=== PATIENT | female | born 1950 | race Caucasian/White ===

== ENCOUNTER 2022-09-17 12:20 | Emergency (ER) | payer OTHER ==
--- OUTSIDE RECORDS SUMMARY | 2022-09-17 12:33 | XMS REPORT | Continuity of Care Document ---
:1950 Author Organization [facility] t Address [address] [facility] [address] [place] [address] Care Team Providers Name Role Phone JEEVAN CARRASCO Primary Care Physician Unavailable RADIOLOGY Attending Clinician Unavailable FOG_A_Provider Attending Clinician Unavailable Radiology Attending Clinician Unavailable Doctor Unassigned, [place] Attending Clinician Unavailable Gin Lopez RN Attending Clinician Unavailable SIENA NAVARRO Attending Clinician Unavailable FOG_A_Provider Admitting Clinician Unavailable JEEVAN CARRASCO Admitting Clinician Unavailable Payers Payer Name Policy Type Policy Number Effective Date Expiration Date S ource HUMANA (PPO) [id number] [employer] CHOICE [id number] 2020 00:00:00 Problems This patient has no known problems. Allergies, Adverse Reactions, Alerts Allergy Allergy Status Severity Reaction(s) Onset Inactive Treating Comm ents Source Name Type Date Date Clinician NO KNOWN Drug Active Univers ALLERGIE Class ity of S [facility] Social History Social Habit Start Date Stop Date Quantity Comments Source Exposure to Not sure [facility] SARS-CoV-2 (event) Medica l Branch Sex Assigned At [birth year] [facility] 00:00:00 00:00:00 Medical [place] Smoking Status Start Date Stop Date Source Unknown if ever smoked [facility] Medications This patient has no known medications. Procedures Procedure Date / Time Performed Performing Clinician [facility] e ASSIGNMENT OF BENEFITS 2021-07-18 19:19:13 Doctor Unassigned, No [facility] Name Medical Branch ASSIGNMENT OF BENEFITS 2020-09-24 17:38:33 Doctor Unassigned, No [facility] Encounters Start End Encounter Admission Attending Care Care Encounter Source Date/Time Date/Time Type Type Clinicians Facility Department ID 2022-07-04 Outpatient [facility] [id number] Common 07:57:00 [facility] 2022-07-03 Outpatient [facility] [id number] Common 08:18:01 [id number] [facility] 2021-03-14 Outpatient [facility] [id number] Common 14:44:02 [facility] 2021-03-06 Outpatient [facility] [id number] Common 14:39:51 [facility] 2022-09-07 2022-09-07 Outpatient FOG_A_Provi AOSM AOSM [id number] Bre 00:00:00 00:00:00 john [id number] [facility] 2022-09-07 2022-09-07 Outpatient FOG_A_Provi AOSM AOSM [id number] Bre 00:00:00 00:00:00 john [id number] [facility] 2022-09-07 2022-09-07 Outpatient FOG_A_Provi AOSM AOSM [id number] Bre 00:00:00 00:00:00 john [id number] [facility] 2022-06-16 2022-06-16 Outpatient FOG_A_Provi AOSM AOSM [id number] Bre 00:00:00 00:00:00 john [id number] [facility] 2021-07-18 2021-07-18 Outpatient R RADIOLOGY [facility] [id number] Univers 14:19:45 23:59:00 ity of [facility] 2021-07-18 2021-07-18 Hospital Radiology [facility] [id number] Univers 14:19:45 23:59:00 Encounter [place] [id number] ity [facility] [id number] [facility] [phone] [place] [address] Branch 2021-07-18 2021-07-18 Orders Doctor ROMAN [id number] Univers 00:00:00 00:00:00 Only Unassigned, ARELY [id number] ity of [place] [facility] [id number] Andrew as [phone] [facility] 009 [place] 2020-09-25 2020-09-25 Letter JESSIE Lopez [id number] Univers 00:00:00 00:00:00 (Out) Gin El ARELY [id number] it y of HOSPITAL [id number] Andrew as [phone] [facility] 019 [place] 2020-09-25 2020-09-25 Letter JESSIE Lopez [id number] Univers 00:00:00 00:00:00 (Out) Gin El ARELY [id number] it y of HOSPITAL [id number] Andrew as [phone] [address] 2020-09-24 2020-09-24 Outpatient Latricia NAVARRO [facility] [id number] Univers 12:30:00 12:30:00 SIENA moncada of [facility] 2020-09-24 2020-09-24 Orders Doctor JESSIE [id number] Univers 00:00:00 00:00:00 Only Unassigned, ARELY [id number] ity of [place] [facility] [id number] Andrew as [phone] [address] Results This patient has no known results.
[2022-09-17 13:23] LABS: Hematocrit 22.2 % (36.0-45.0); Lymphocytes % 19.9 % (15.3-44.8); MCV 63.4 fL (80-100); MPV 7.7 fL (7.6-11.3); Platelets 473 thou/uL (152-406); RBC Red Blood Cell Count 3.51 M/uL (3.86-4.86)
[2022-09-17 13:48] LABS: Albumin 3.8 g/dL (3.4-5.0); Bilirubin Total 0.6 mg/dL (0.2-1.0); Potassium 3.8 mEq/L (3.5-5.1); Protein, Total 6.7 g/dL (6.4-8.2); Thyroid Stimulating Hormone 1.56 uIU/mL (0.358-3.740)
[2022-09-17] MEDS ORDERED: NA CHLORIDE 0.9% 250 ML ONE ×2 (15:21→18:14)
[2022-09-17 16:35] LABS: Anisocytosis 1+; Blood Morphology Comment NOTED (NOT SEEN); Platelet Estimate INCR; Poikilocytosis 1+; White Blood Cell Scan OK (OK)
--- NOTE | 2022-09-17 19:31 | EDPHYS ---
Physician Documentation [facility] Name: Afsaneh Durant Age: 72 yrs Sex: Female : 1950 Arrival Date: 09/17/2022 Time: 12:20 Bed 20 Private MD: ED Physician Mitch Jimenez HPI: 09/17 13:31 This 72 yrs old Female presents to ER via Ambulatory with complaints of Abnormal Lab snw Results. 13:31 Discussed CEBALLOS with PCP, labs revealed Hbg of 6, pt sent to ED. snw Historical: - Allergies: 12:36 macadamian nuts; cm10 - Home Meds: 12:36 None [Active]; cm10 - PMHx: 12:36 Anemia; cm10 - PSHx: 12:36 hysterectomy; cm10 - Immunization history:: Adult Immunizations unknown. - Social history:: Smoking status: Patient denies any tobacco usage or history of. ROS: 13:30 Eyes: Negative for injury, pain, redness, and discharge, ENT: Negative for injury, snw pain, and discharge, Neck: Negative for injury, pain, and swelling, Cardiovascular: Negative for chest pain, palpitations, and edema. 13:30 Abdomen/GI: Negative for abdominal pain, nausea, vomiting, diarrhea, and constipation, denies blood in stool Back: Negative for injury and pain, : Negative for injury, bleeding, discharge, and swelling, MS/Extremity: Negative for injury and deformity, Skin: Negative for injury, rash, and discoloration, Neuro: Negative for headache, weakness, numbness, tingling, and seizure, Psych: Negative for depression, anxiety, suicide ideation, homicidal ideation, and hallucinations. 13:30 Constitutional: Positive for fatigue, malaise. 13:30 Respiratory: Positive for dyspnea on exertion. Exam: 13:30 Constitutional: This is a well developed, well nourished patient who is awake, alert, snw and in no acute distress. Head/Face: Normocephalic, atraumatic. Eyes: Pupils equal round and reactive to light, extra-ocular motions intact. Lids and lashes normal. Conjunctiva and sclera are non-icteric and not injected. Cornea within normal limits. Periorbital areas with no swelling, redness, or edema. ENT: Nares patent. No nasal discharge, no septal abnormalities noted. Tympanic membranes are normal and external auditory canals are clear. Oropharynx with no redness, swelling, or masses, exudates, or evidence of obstruction, uvula midline. Mucous membranes moist. Neck: Trachea midline, no thyromegaly or masses palpated, and no cervical lymphadenopathy. Supple, full range of motion without nuchal rigidity, or vertebral point tenderness. No Meningismus. Chest/axilla: Normal chest wall appearance and motion. Nontender with no deformity. No lesions are appreciated. Cardiovascular: Regular rate and rhythm with a normal S1 and S2. No gallops, murmurs, or rubs. Normal PMI, no JVD. No pulse deficits. Respiratory: Lungs have equal breath sounds bilaterally, clear to auscultation and percussion. No rales, rhonchi or wheezes noted. No increased work of breathing, no retractions or nasal flaring. Abdomen/GI: Soft, non-tender, with normal bowel sounds. No distension or tympany. No guarding or rebound. No evidence of tenderness throughout. Back: No spinal tenderness. No costovertebral tenderness. Full range of motion. Skin: Warm, dry with normal turgor. Normal color with no rashes, no lesions, and no evidence of cellulitis. MS/ Extremity: Pulses equal, no cyanosis. Neurovascular intact. Full, normal range of motion. Neuro: Awake and alert, GCS 15, oriented to person, place, time, and situation. Cranial nerves II-XII grossly intact. Motor strength 5/5 in all extremities. Sensory grossly intact. Cerebellar exam normal. Normal gait. Psych: Awake, alert, with orientation to person, place and time. Behavior, mood, and affect are within normal limits. Vital Signs: 12:34 BP 154 / 73; Pulse 86; Resp 18; Temp 98.2; Pulse Ox 100% ; Weight 94.8 kg; Height 5 ft. cm10 6 in. ; Pain 0/10; 15:16 BP 157 / 77; Pulse 57; Resp 18 S; Pulse Ox 100% on R/A; kc6 16:28 BP 133 / 93; Pulse 80; Resp 19 S; Temp 97.9(O); Pulse Ox 97% on R/A; kc6 17:41 BP 157 / 78; Pulse 66; Resp 17 S; Pulse Ox 100% on R/A; kc6 18:44 BP 146 / 67; Pulse 80; Resp 19 S; Pulse Ox 100% on R/A; kc6 23:32 BP 124 / 54; Pulse 65; Resp 17; Pulse Ox 99% on R/A; ll3 12:34 Body Mass Index 33.73 (94.80 kg, 167.64 cm) cm10 12:34 Pain Scale: Adult cm10 MDM: 12:38 Patient medically screened. snw 13:30 Differential Diagnosis anemia, chf, . Data reviewed: vital signs, nurses notes. snw Counseling: I had a detailed discussion with the patient and/or guardian regarding: the historical points, exam findings, and any diagnostic results supporting the discharge/admit diagnosis, the presence of at least one elevated blood pressure reading (>120/80) during this emergency department visit, lab results. 15:59 Special discussion: Based on the history and exam findings, there is no indication for snw further emergent testing or inpatient evaluation. I discussed with the patient/guardian the need to see the recordist chief/oncologist for further evaluation of the symptoms. I discussed with the patient/guardian the need to see the primary care provider for further evaluation of the symptoms. 15:59 ED course: rec'ing 1st PRBC transfusion. pt declines admission. Voices understanding of snw timeframe of transfusion of 2 units PRBC . 09/17 12:39 Order name: TS snw 09/17 12:39 Order name: TSH; Complete Time: 13:48 snw 09/17 12:39 Order name: CBC with Diff; Complete Time: 16:38 snw 09/17 12:39 Order name: CMP; Complete Time: 13:48 snw 09/17 13:08 Order name: B12; Complete Time: 14:58 snw 09/17 14:19 Order name: Add On-Lab snw 09/17 14:27 Order name: Bb Add On bd 09/17 14:54 Order name: Packed RBCs (Additional Unit) EDMS 09/17 15:22 Order name: ABO/RH no charge; Complete Time: 08:11 EDMS 09/17 16:36 Order name: CBC Smear Scan; Complete Time: 16:38 EDMS 09/17 22:52 Order name: Hemoglobin; Complete Time: 08:11 ll3 09/17 12:39 Order name: SL; Complete Time: 13:13 snw Administered Medications: No medications were administered Disposition Summary: 09/17/22 19:30 Discharge Ordered Location: Home snw Condition: Stable snw Diagnosis - Anemia, unspecified snw Followup: snw - With: Emergency Department - When: As needed - Reason: Worsening of condition Followup: snw - With: Private Physician - When: 2 - 3 days - Reason: Recheck today's complaints, Continuance of care, Re-evaluation by your physician Discharge Instructions: - Discharge Summary Sheet snw - Anemia snw - Blood Transfusion, Adult snw Forms: - Medication Reconciliation Form snw - Thank You Letter snw - Antibiotic Education snw - Prescription Opioid Use snw - Patient Portal Instructions snw Signatures: Dispatcher [employer] Bibiana Mg FNP-C FNP-Nidia Nino RN RN cm10 Corrections: (The following items were deleted from the chart) 12:37 12:36 Allergies: No Known Allergies; cm10 cm10 17:10 14:19 PACKED RBC LEUKORED+BB.LAB.BRZ ordered. EDMS EDMS 17:10 14:21 ABO/RH typing ordered. EDMS EDMS 17:10 14:22 Antibody Screen ordered. EDMS EDMS
--- NOTE | 2022-09-17 19:31 | ER ---
Nurse's Notes [facility] Name: Afsaneh Durant Age: 72 yrs Sex: Female : 1950 Arrival Date: 09/17/2022 Time: 12:20 Bed 20 Private MD: Diagnosis: Anemia, unspecified Presentation: 09/17 12:34 Chief complaint: Patient states: had labs done yesterday for a wellness check and they cm10 called her this morning and told here that her HGB was 6. Pt reports that she has been short of breath with exertion. Coronavirus screen: Vaccine status: Patient reports receiving the 2nd dose of the covid vaccine. Ebola Screen: Patient denies travel to an Ebola-affected area in the 21 days before illness onset. No symptoms or risks identified at this time. Initial Sepsis Screen: Does the patient meet any 2 criteria? No. Patient's initial sepsis screen is negative. Does the patient have a suspected source of infection? No. Patient's initial sepsis screen is negative. Risk Assessment: Do you want to hurt yourself or someone else? Patient reports no desire to harm self or others. Onset of symptoms was September 17, 2022. 12:34 Method Of Arrival: Ambulatory cm10 12:34 Acuity: MARY 3 cm10 Historical: - Allergies: 12:36 macadamian nuts; cm10 - Home Meds: 12:36 None [Active]; cm10 - PMHx: 12:36 Anemia; cm10 - PSHx: 12:36 hysterectomy; cm10 - Immunization history:: Adult Immunizations unknown. - Social history:: Smoking status: Patient denies any tobacco usage or history of. Screenin:30 [facility] ED Fall Risk Assessment (Adult) History of falling in the last 3 months, kc6 including since admission No falls in past 3 months (0 pts) Confusion or Disorientation No (0 pts) Intoxicated or Sedated No (0 pts) Impaired Gait No (0 pts) Mobility Assist Device Used No (0 pt) Altered Elimination No (0 pt) Score/Fall Risk Level 0 - 2 = Low Risk. Abuse screen: Denies threats or abuse. Denies injuries from another. Nutritional screening: No deficits noted. Tuberculosis screening: No symptoms or risk factors identified. Assessment: 13:30 General: Appears in no apparent distress. comfortable, Behavior is calm, cooperative, kc6 appropriate for age. Pain: Denies pain. Neuro: Level of Consciousness is awake, alert, obeys commands, Oriented to person, place, time, situation, Appropriate for age. Cardiovascular: Capillary refill < 3 seconds. Respiratory: Airway is patent Trachea midline Respiratory effort is even, unlabored, Respiratory pattern is regular, symmetrical. GI: No signs and/or symptoms were reported involving the gastrointestinal system. : No signs and/or symptoms were reported regarding the genitourinary system. EENT: No signs and/or symptoms were reported regarding the EENT system. Derm: No signs and/or symptoms reported regarding the dermatologic system. Skin is intact, is healthy with good turgor, Skin is dry, Skin is pale, Skin temperature is warm. Musculoskeletal: No signs and/or symptoms reported regarding the musculoskeletal system. 14:30 Reassessment: Patient appears in no apparent distress at this time. No changes from kc6 previously documented assessment. Patient and/or family updated on plan of care and expected duration. Pain level reassessed. Patient is alert, oriented x 3, equal unlabored respirations, skin warm/dry/pink. 15:30 Reassessment: Patient appears in no apparent distress at this time. No changes from kc6 previously documented assessment. Patient and/or family updated on plan of care and expected duration. Pain level reassessed. Patient is alert, oriented x 3, equal unlabored respirations, skin warm/dry/pink. 16:28 Reassessment: Patient appears in no apparent distress at this time. No changes from kc6 previously documented assessment. Patient and/or family updated on plan of care and expected duration. Pain level reassessed. Patient is alert, oriented x 3, equal unlabored respirations, skin warm/dry/pink. 17:41 Reassessment: Patient appears in no apparent distress at this time. No changes from kc6 previously documented assessment. Patient and/or family updated on plan of care and expected duration. Pain level reassessed. Patient is alert, oriented x 3, equal unlabored respirations, skin warm/dry/pink. 18:44 Reassessment: Patient appears in no apparent distress at this time. No changes from kc6 previously documented assessment. Patient and/or family updated on plan of care and expected duration. Pain level reassessed. Patient is alert, oriented x 3, equal unlabored respirations, skin warm/dry/pink. 21:00 Reassessment: D/c pending post 2 hour transfusion hemoglobin recheck. ll3 Vital Signs: 12:34 BP 154 / 73; Pulse 86; Resp 18; Temp 98.2; Pulse Ox 100% ; Weight 94.8 kg; Height 5 ft. cm10 6 in. ; Pain 0/10; 15:16 BP 157 / 77; Pulse 57; Resp 18 S; Pulse Ox 100% on R/A; kc6 16:28 BP 133 / 93; Pulse 80; Resp 19 S; Temp 97.9(O); Pulse Ox 97% on R/A; kc6 17:41 BP 157 / 78; Pulse 66; Resp 17 S; Pulse Ox 100% on R/A; kc6 18:44 BP 146 / 67; Pulse 80; Resp 19 S; Pulse Ox 100% on R/A; kc6 23:32 BP 124 / 54; Pulse 65; Resp 17; Pulse Ox 99% on R/A; ll3 12:34 Body Mass Index 33.73 (94.80 kg, 167.64 cm) cm10 12:34 Pain Scale: Adult cm10 ED Course: 12:22 Patient arrived in ED. mr 12:28 Bibiana Wilkinson, [facility] snw 12:28 Mitch Jimenez MD is Attending Physician. snw 12:36 Triage completed. cm10 12:37 Arm band placed on. cm10 12:51 Chantal Meehan, SHERRON is Primary Nurse. kc6 13:13 Inserted saline lock: 22 gauge in right antecubital area, using aseptic technique. kc6 Blood collected. 13:30 Patient has correct armband on for positive identification. Bed in low position. Call kc6 light in reach. Side rails up X 1. 13:47 Inserted saline lock: 20 gauge in left antecubital area, using aseptic technique. kc6 19:00 Report given to Morgan Ohara RN. kc6 23:31 No provider procedures requiring assistance completed. IV discontinued, intact, ll3 bleeding controlled, No redness/swelling at site. Pressure dressing applied. Administered Medications: No medications were administered Medication: 23:32 VIS not applicable for this client. ll3 Outcome: 19:30 Discharge ordered by . snw 23:31 Discharged to home ambulatory, with family. ll3 23:31 Condition: stable 23:31 Discharge instructions given to patient, family, Instructed on discharge instructions, follow up and referral plans. Demonstrated understanding of instructions, follow-up care. 23:33 Patient left the ED. ll3 Signatures: Bibiana Wilkinson, GETTER WELDER-C GETTER WELDER-Csnw Adiel Afsaneh Ohara, Morgan, RN RN ll3 Chantal Meehan RN RN kc6 Nidia Sapp RN RN cm10 Corrections: (The following items were deleted from the chart) 12:37 12:36 Allergies: No Known Allergies; cm10 cm10
[2022-09-18 00:54] VITALS: TEMP 97.9
[2022-09-18 00:59] VITALS: BP 124/54; O2SAT 99
== END 2022-09-17 23:33 | disposition home or self-care (01) ==
LOC: ER 12:20
PROC: 30233N1 Transfusion of Nonautologous Red Blood Cells into Peripheral Vein, Percutaneous Approach (ICD-10-PCS; principal; 2022-09-17)
DX: D64.9 Anemia, unspecified (principal); Z91.018 Allergy to other foods
CPT/HCPCS: 85025; 36415; 86900; 86850; 86901; 86920 ×2; 84443; 85018; 82607; 80053; 36430; P9016 ×2; J7050 ×2